=== PATIENT | female | born 1980 | race Caucasian/White ===

== ENCOUNTER 2017-03-19 08:26 | Observation (INO) ==
[2017-03-19] MEDS ORDERED: ASPIRIN PO STA (08:46)
[2017-03-19 08:53] LABS: MANUAL DIFF NEEDED? NO
[2017-03-19 08:58] LABS: BASO% 0.2 % (0.0-0.8); EOS# 0.18 X1000 (0.0-0.7); EOS% 1.8 % (0.0-10.0); HEMATOCRIT 45.6 % (37.0-47.0); HEMOGLOBIN 14.5 g/dL (12.0-16.0); IMM GRAN# 0.04 X1000 (0.0-0.04); IMM GRAN% 0.4 % (0.0-0.5); LYMPH# 1.72 X1000 (1.2-3.4); LYMPH% 17.5 % (20.5-51.1); MCH 25.4 PG (27-31); MCHC 31.8 g/dL (33-37); MONO# 0.34 X1000 (0.11-0.59); MONO% 3.5 % (1.7-9.3); MPV 9.6 FL (7.4-10.4); NEUT% 76.6 % (42.2-75.2); PLT 249 X1000 (130-400)
--- NOTE | 2017-03-19 09:00 | EKG Report ---
Test Performed on : 03/19/2017 08:33:56 AM Test Reason : CHEST PAIN Blood Pressure : / mmHG Vent. Rate : 086 BPM Atrial Rate : 086 BPM P-R Int : 156 ms QRS Dur : 082 ms QT Int : 362 ms P-R-T Axes : 014 006 036 degrees QTc Int : 433 ms Normal sinus rhythm. Low voltage QRS Borderline ECG No previous ECGs available Unconfirmed Result
[2017-03-19 09:18] LABS: AGAP 13; ALBUMIN 3.6 g/dL (3.5-5.0); ALKALINE PHOSPHATASE 95 U/L (32-104); BUN 6 mg/dL (8-22); CALCIUM 8.8 mg/dL (8.8-10.2); CHLORIDE 97 mmol/L (98-107); CK PROFILE 52 U/L (24-173); COSMO 267; GOT 16 U/L (10-30); GPT 10 U/L (10-36); MAGNESIUM 2.1 mg/dL (1.5-2.7); POTASSIUM 4.2 mmol/L (3.5-5.1); SODIUM 134 mmol/L (136-145); TCO2 25 mmol/L (25-35); TOTAL PROTEIN 7.6 g/dL (6.3-8.3)
--- NOTE | 2017-03-19 09:18 | Diag Imaging Result Doc PS360 ---
EXAM: CHEST-2 VIEWS HISTORY: CP TECHNIQUE: COMPARISON: None. FINDINGS: The lungs are well expanded. The heart is not enlarged. The vessels are not distended. There are no infiltrates. No pleural effusions. IMPRESSION: No acute abnormality. Electronically signed by Gm Ramirez 03/19/2017 9:16 AM
[2017-03-19] MEDS ORDERED: ZOFRAN IV ONE (09:41)
--- NOTE | 2017-03-19 09:48 | ED EKG INTERP ---
This chart was entered by Gricel Toussaint Scribe, acting as scribe for Colleen Santiago MD. EKG Interpretation - EKG Time of EKG reading by physician:: 08:33 EKG Read and Signed by:: Colleen Santiago EKG Interpretation (*Must complete 3 of following elements*): Abnormal Rate: 86 Rhythm: normal sinus rhythm Comments: low voltage QRS Attestation - Physician/ LISA Attestation Patient care was provided by Advanced Practice Provider:: No The physician spent face to face time with patient:: Yes Advanced Practice Provider documentation review:: Supervising physician onsite and consulted in the evaluation and care of this patient. The physician did have a face to face encounter with the patient. This chart was documented by the indicated scribe, (Gricel Toussaint Scribe) and accurately reflects the services I performed and decisions made by me, Colleen Santiago MD, as attested by the provider's signature.
--- NOTE | 2017-03-19 09:53 | PROVIDER DOCUMENTATION ---
HPI-Chest Pain - General Chief Complaint: Chest Pain Stated Complaint: CHEST PAIN Time Seen by Provider: 03/19/17 08:49 Source: patient, family Allergies/Adverse Reactions: Patient Allergies Allergy/AdvReac Type Severity Reaction Status Date / Time No Known Allergies Allergy Verified 03/19/17 08:41 Home Medications: Home Medication List Medication Instructions Recorded Confirmed Last Taken Type NK [No Home Medications] 03/19/17 03/19/17 Unknown History - History of Present Illness-CP Nature of Presenting Problem: Reports L sided CP and LUQ pain X 1 week. Chest pain is located at left upper chest radiating to L upper back and L upper arm. Denies SOB/LOC/N/V. Pt has been to [facility] and another ER plus PCP office for the same issues since 1-2 months ago. Pt weighs > 400 lbs and does not want to fo gastric bypass surgeries. Denies taking any medications at regular bases. Pt is in no distress when seen at ER, even though she states that her CP has been constant since yesterday. Denies F/C/N/V and no dysuria. H/o octavio. Location: reports: other (See above) Chest Pain Radiation: reports: arms Quality of Pain: reports: aching Severity in ED: moderate Onset/Duration: 1 week ago Timing: still present, constant Context/Activities at Onset: reports: none Modifying Factors: improves with: nothing Associated Symptoms: reports: fatigue. denies: diaphoresis, dizziness, shortness of breath, syncope, vomiting Nitro Today/Relief: provided by ED Review of Systems - Adult - REVIEW OF SYSTEMS - ADULT Constitutional: reports: no symptoms reported Eyes: reports: no symptoms reported Ears, Nose, Mouth & Throat: reports: no symptoms reported Cardiovascular: reports: see HPI, chest pain Respiratory: reports: see HPI. denies: hemoptysis, pleurisy, shortness of breath Gastrointestinal: reports: see HPI, abdominal pain Genitourinary: reports: no symptoms reported Musculoskeletal: reports: no symptoms reported Integumentary: reports: no symptoms reported Neurological: reports: no symptoms reported Psychiatric: reports: no symptoms reported Endocrine: reports: no symptoms reported Hematologic/Lymphatic: reports: no symptoms reported Allergic/Immunologic: reports: no symptoms reported All Other Systems: Reviewed and Negative Past History - Adult - PAST MEDICAL HISTORY-ADULT Review of Records: reports: Old Records Reviewed, Nursing Assessment Review, Medications Reviewed, Social history reviewed & non-contributory. - SOCIAL HISTORY Smoking: denies Substance Use: none/never Alcohol Use Frequency: never Physical Exam-General - PHYSICAL EXAM-ADULT Initial Vital Signs Reviewed: Yes - CONSTITUTIONAL General Appearance: appears well, alert, no apparent distress, obese. negative : mild distress, moderate distress, severe distress, cachetic, anxious, lethargic, slow to respond, combative - EYES Eyes: PERRL/EOMI, pink conjunctivae - HEAD, EARS, NOSE, MOUTH & THROAT HENMT: normocephalic/atraumatic, moist mucous membranes - NECK Neck: non-tender, full range of motion, supple, normal inspection - RESPIRATORY Respiratory: chest non-tender, lungs clear, normal breath sounds - GASTROINTESTINAL (ABDOMEN) Abdominal Exam: normal bowel sounds, soft, tenderness, other (LUQ moderate tenderness, no guarding and no rebound.). negative: guarding, rigid, rebound, McBurney's point tenderness, Mendenhall's sign, obturator sign - MUSCULOSKELETAL Back Exam: normal inspection, no CVA tenderness Extremity: normal range of motion, non-tender, normal gait - SKIN Integumentary: normal color, normal turgor - NEUROLOGIC Neurologic: no motor/sensory deficits, abnormal cerebellar tests - PSYCHIATRIC Psych/Mental Status: normal mood/affect, normal thought content, normal thought process, oriented x 3 Progress - PLAN OF CARE/RESULTS Progress/Plan/Lab Results: Vital Signs - 8 hr 03/19/17 08:39 Temperature 97.9 F Pulse Rate 90 Respiratory Rate 19 Blood Pressure 132/85 O2 Sat by Pulse Oximetry 99 Laboratory Results - last 24 hr 03/19/17 03/19/17 03/19/17 08:40 08:40 08:40 WBC RBC Hgb Hct MCV MCH MCHC RDW Std Deviation Plt Count MPV Immature Gran % (Auto) Neut % (Auto) Lymph % (Auto) Bradley % (Auto) Eos % (Auto) Baso % (Auto) Immature Gran # (Auto) Neut # (Auto) Lymph # (Auto) Bradley # (Auto) Eos # (Auto) Baso # (Auto) D-Dimer Sodium 134 L Potassium 4.2 Chloride 97 L Carbon Dioxide 25 Anion Gap 13 BUN 6 L Creatinine 0.6 Estimated GFR/1.73 m2 > 60 BUN/Creatinine Ratio 10 Glucose 114 H Calculated Osmolality 267 Calcium 8.8 Magnesium 2.1 Total Bilirubin 0.40 AST 16 ALT 10 Alkaline Phosphatase 95 Creatine Kinase 52 Troponin T < 0.010 [id number] Pept 123 Total Protein 7.6 Albumin 3.6 Globulin 4.0 Albumin/Globulin Ratio 1.0 Lipase Urine Source Urine Color Urine Clarity Urine pH Ur Specific [place] Urine Protein Urine Ketones Urine Blood Urine Nitrite Urine Bilirubin Urine Urobilinogen Urine Microscopic RBC Urine WBC Urine Microscopic WBC Ur Epithelial Cells Urine Bacteria Urine Glucose Urine Test Urine Opiates Screen Ur Oxycodone Screen Urine Methadone Screen Ur Barbituates Screen Ur Tricyclics Screen Ur Phencyclidine Scrn Ur Amphetamines Screen U Methamphetamines Scrn Urine MDMA Screen U Benzodiazepines Scrn Urine Cocaine Screen U Cannabinoids Screen 03/19/17 03/19/17 03/19/17 08:40 08:40 08:40 WBC 9.85 RBC 5.70 H Hgb 14.5 Hct 45.6 MCV 80.0 L MCH 25.4 L MCHC 31.8 L RDW Std Deviation 15.2 H Plt Count 249 MPV 9.6 Immature Gran % (Auto) 0.4 Neut % (Auto) 76.6 H Lymph % (Auto) 17.5 L Bradley % (Auto) 3.5 Eos % (Auto) 1.8 Baso % (Auto) 0.2 Immature Gran # (Auto) 0.04 Neut # (Auto) 7.55 H Lymph # (Auto) 1.72 Bradley # (Auto) 0.34 Eos # (Auto) 0.18 Baso # (Auto) 0.02 D-Dimer 0.26 Sodium Potassium Chloride Carbon Dioxide Anion Gap BUN Creatinine Estimated GFR/1.73 m2 BUN/Creatinine Ratio Glucose Calculated Osmolality Calcium Magnesium Total Bilirubin AST ALT Alkaline Phosphatase Creatine Kinase Troponin T [id number] Pept Total Protein Albumin Globulin Albumin/Globulin Ratio Lipase 16 Urine Source Urine Color Urine Clarity Urine pH Ur Specific [place] Urine Protein Urine Ketones Urine Blood Urine Nitrite Urine Bilirubin Urine Urobilinogen Urine Microscopic RBC Urine WBC Urine Microscopic WBC Ur Epithelial Cells Urine Bacteria Urine Glucose Urine Test Urine Opiates Screen Ur Oxycodone Screen Urine Methadone Screen Ur Barbituates Screen Ur Tricyclics Screen Ur Phencyclidine Scrn Ur Amphetamines Screen U Methamphetamines Scrn Urine MDMA Screen U Benzodiazepines Scrn Urine Cocaine Screen U Cannabinoids Screen 03/19/17 03/19/17 03/19/17 10:00 10:00 10:00 WBC RBC Hgb Hct MCV MCH MCHC RDW Std Deviation Plt Count MPV Immature Gran % (Auto) Neut % (Auto) Lymph % (Auto) Bradley % (Auto) Eos % (Auto) Baso % (Auto) Immature Gran # (Auto) Neut # (Auto) Lymph # (Auto) Bradley # (Auto) Eos # (Auto) Baso # (Auto) D-Dimer Sodium Potassium Chloride Carbon Dioxide Anion Gap BUN Creatinine Estimated GFR/1.73 m2 BUN/Creatinine Ratio Glucose Calculated Osmolality Calcium Magnesium Total Bilirubin AST ALT Alkaline Phosphatase Creatine Kinase Troponin T [id number]-Tzdkayqcdlk Pept Total Protein Albumin Globulin Albumin/Globulin Ratio Lipase Urine Source CLEAN CATCH Urine Color YELLOW Urine Clarity CLEAR Urine pH 6.0 Ur Specific [place] 1.005 Urine Protein NEGATIVE Urine Ketones NEGATIVE Urine Blood TRACE Urine Nitrite NEGATIVE Urine Bilirubin NEGATIVE Urine Urobilinogen NORMAL Urine Microscopic RBC <10 Urine WBC NEGATIVE Urine Microscopic WBC <10 Ur Epithelial Cells >10 A Urine Bacteria 2+ Urine Glucose NEGATIVE Urine Test NEGATIVE Urine Opiates Screen NONE DETECTED Ur Oxycodone Screen NONE DETECTED Urine Methadone Screen NONE DETECTED Ur Barbituates Screen NONE DETECTED Ur Tricyclics Screen NONE DETECTED Ur Phencyclidine Scrn NONE DETECTED Ur Amphetamines Screen NONE DETECTED U Methamphetamines Scrn NONE DETECTED Urine MDMA Screen NONE DETECTED U Benzodiazepines Scrn NONE DETECTED Urine Cocaine Screen NONE DETECTED U Cannabinoids Screen NONE DETECTED Orders Category Date Time Status Cardiac Monitoring DIRECTED Care 03/19/17 08:46 Active Saline Loc NOW Care 03/19/17 08:46 Active CHEST-2 VIEWS [RAD] Stat Exams 03/19/17 08:46 Completed US ABDOMEN-COMPLETE [US] Stat Exams 03/19/17 11:00 Ordered CBC WITH ELECTRONIC DIFF [HEME] Stat Lab 03/19/17 08:40 Completed CK PROFILE [SP CHEM] Stat Lab 03/19/17 08:40 Completed COMPREHENSIVE METABOLIC PANEL [CHEM] Stat Lab 03/19/17 08:40 Com[address] D-DIMER PL [COAG] Stat Lab 03/19/17 08:40 Completed LIPASE [CHEM] Stat Lab 03/19/17 08:40 Completed MAGNESIUM [CHEM] Stat Lab 03/19/17 08:40 Completed TEST-URINE [PREG] Stat Lab 03/19/17 10:00 Completed PRO B-NATRIURETIC PEPTIDE Stat Lab 03/19/17 08:40 Completed TROPONIN T Stat Lab 03/19/17 08:[address] W/POSS RFLX CULT [URINALYSIS] Stat Lab 03/19/17 10:00 Completed URINE DRUG SCREEN PL Stat Lab 03/19/17 10:00 Completed Aspirin Med 03/19/17 08:46 Discontinued 325 mg PO STAT STA Ondansetron [Zofran] Med 03/19/17 09:41 Discontinued 8 mg IV NOW ONE EKG [EKG] Stat Ther 03/19/17 08:46 Draft Result Diagrams: 03/19/17 08:40 03/19/17 08:40 - CONSULTS/PCP/HOSPITALIST Notification #1 *Consult/PCP/Hospitalist*: Dr. Shin Time Discussed: 11:02 Consult Disposition: Will see in ED, Admit Departure - Departure Date of Disposition Decision: 03/19/17 Time of Disposition Decision: 11:01 DIAGNOSIS: Chest pain, Abdominal pain Disposition: ADMITTED INPATIENT 09 Certified Medical Emergency: Emergent Condition: Stable Referrals and Follow-Ups: None,PCP [Primary Care Provider] - - Critical Care Note This patient required my direct & personal management of CC.: No Attestation - Physician/ LISA Attestation Patient care was provided by Advanced Practice Provider:: No The physician spent face to face time with patient:: Yes Advanced Practice Provider documentation review:: Supervising physician onsite and consulted in the evaluation and care of this patient. The physician did have a face to face encounter with the patient.
[2017-03-19 10:37] LABS: BILIRUBIN URINE NEGATIVE (NEGATIVE); BLOOD URINE TRACE (NEGATIVE); CLARITY CLEAR (CLEAR); COLOR YELLOW; GLUCOSE URINE NEGATIVE (NEGATIVE); LEUKOCYTES URINE NEGATIVE (NEGATIVE); NITRITE URINE NEGATIVE (NEGATIVE); PROTEIN URINE NEGATIVE (NEGATIVE); SP GRAVITY URINE 1.005; UR AMPHETAMINES QUAL NONE DETECTED (NONE DETECT); UR BARBITUATES QUAL NONE DETECTED (NONE DETECT); UR BENZODIAZEPIN QUAL NONE DETECTED (NONE DETECT); UR CANNABINOIDS QUAL NONE DETECTED (NONE DETECT); UR COCAINE QUAL NONE DETECTED (NONE DETECT); UR MDMA QUAL NONE DETECTED (NONE DETECT); UR METHADONE QUAL NONE DETECTED (NONE DETECT); UR METHAMPHETAMINE QUAL NONE DETECTED (NONE DETECT); UR OPIATES QUAL NONE DETECTED (NONE DETECT); UR OXYCODONE QUAL NONE DETECTED (NONE DETECT); UR PCP QUAL NONE DETECTED (NONE DETECT); UR TCA QUAL NONE DETECTED (NONE DETECT); UROBILINOGEN URINE NORMAL
[2017-03-19 10:49] LABS: URINE CULTURE PL NEEDED? YES; URINE EPITHELIAL CELLS >10 /HPF (<10); URINE RBC <10 /HPF (<10); URINE SOURCE CLEAN CATCH; URINE WBC <10 /HPF (<10)
[2017-03-19] MEDS ORDERED: TORADOL IM ONE (11:09)
--- NOTE | 2017-03-19 11:57 | Diag Imaging Result Doc PS360 ---
US ABDOMEN-COMPLETE - 03/19/2017 INDICATION: Abd pain COMPARISON: None FINDINGS: The gallbladder is absent. The liver is fatty. Spleen size is borderline enlarged measuring 14.8 x 6.5 x 13.2 cm. The gallbladder is absent. Common bile duct measures 5 mm. Both kidneys are normal. Aorta, IVC, and main portal vein are patent. IMPRESSION: Fatty liver. Mild splenomegaly. No acute disease. Electronically signed by Chino Brewster 03/19/2017 11:54 AM
[2017-03-19] MEDS: PRINIVIL PO SCH (16:43)
--- NOTE | 2017-03-19 17:46 | HISTORY AND PHYSICAL ---
PRIMARY CARE PHYSICIAN: None. CHIEF COMPLAINT: Chest pain and left upper quadrant pain x1 week that progressively worsened. HISTORY OF PRESENTING ILLNESS: This is a 36-year-old morbidly obese, female who presents to [facility] ER with left upper chest pain radiating through to her left upper back and left arm and right upper quadrant abdominal pain. She states the pain is sharp and constant and states that she was seen back in the spring at [facility] and her primary care physician at that time with the same complaints. Workup had been negative up to this point. Today she presents to the ER and her cardiac enzymes x2 sets have been negative. Her chest x-ray showed no acute abnormality. We did an abdomen ultrasound that showed a fatty liver and mild splenomegaly but no acute disease. EKG on arrival showed normal sinus rhythm at 86. Due to her weight of 466 pounds she is unable to get a CTA of the chest as she is above our weight limit for our CT scanner. So, she is being admitted for further evaluation and treatment. PAST MEDICAL HISTORY: Cerebral pseudotumor and trigeminal neuralgia and morbid obesity. PAST SURGICAL HISTORY: x2. Hysterectomy, tonsillectomy and adenoidectomy, and a cholecystectomy. FAMILY HISTORY: Noncontributory. SOCIAL HISTORY: She currently lives with family. Denied any tobacco, alcohol, or illicit drug use. ALLERGIES: She has no known drug allergies. HOME MEDICATIONS: She does not take any medications on a routine basis. LABORATORY DATA: Showed a white blood cell count of 9.85, hemoglobin of 14.5, hematocrit 45.6, platelets 249,000. D-dimer of 0.26. Sodium of 134, potassium 4.2, chloride 97, CO2 25, BUN of 6, creatinine 0.6, glucose 114, magnesium of 2.1. Cardiac enzymes x2 sets have been negative. Lipase of 16. Urinalysis is negative noted to have 2+ bacteria but greater than 10 epithelial cells. Urine drug screen is negative. Chest x-ray showed no acute abnormality. EKG on arrival showed normal sinus rhythm at 86. Abdomen ultrasound showed a fatty liver. Mild splenomegaly and no acute disease. REVIEW OF SYSTEMS: She denied any fever, chills, blurred vision, dizziness. She is positive for left-sided chest pain, back and left arm pain, left upper quadrant abdominal pain. She denied any nausea, vomiting, burning or hurting with urination. PHYSICAL EXAMINATION: VITAL SIGNS: On arrival, her temperature was 97.9 degrees. Pulse 90, respirations 19, blood pressure 132/85. Saturating 99% on room air. GENERAL: This is a 36-year-old morbidly obese, female who is lying in the bed, answers questions appropriately. HEENT: Normocephalic and atraumatic. Pupils are equal, round, reactive to light. Extraocular movements are intact. Oropharynx and nares are clear. NECK: Supple. LUNGS: Clear to auscultation bilaterally with equal lung expansion and chest wall movement. HEART: Regular rate and rhythm. No murmurs, rubs, or gallops. ABDOMEN: Soft, nontender, nondistended. Bowel sounds are present x4 quadrants. EXTREMITIES: No clubbing, cyanosis, or edema. NEUROLOGICAL: The cranial nerves 2-12 appear grossly intact. ASSESSMENT: 1. Chest pain. 2. Left upper quadrant abdominal pain. 3. Hypertension. 4. Morbid obesity. PLAN: She was admitted to the medical unit at [facility] and placed on telemetry. Healthy heart diet. Urine culture is pending. We will hold her NPO after midnight for a myocardial perfusion scan in the a.m., place her on an aspirin 325 mg p.o. daily. Check an echocardiogram also. Dictated by JERILYN Davis for Gabriele Shin MD cc: JERILYN Davis MD
[2017-03-19] MEDS ORDERED: TORADOL IV PRN (20:24)
--- NOTE | 2017-03-20 03:57 | PROGRESS NOTE ---
DATE: 03/21/2017 ADDENDUM: Patient seen and examined by myself. Full note dictated, discussed with nurse practitioner. Patient comes to the ER noting that she has had chest pain off and on for the past several days. States that her finally convinced her to come to the ER. She felt as though it may be her heart. However she does note that the shot of Toradol they gave her in the ER is much better. Pain is actually radiating across the left chest wall. PHYSICAL: She is awake, alert, oriented. She is in no distress, morbidly obese female who is sitting on the side of the bed. She is in no respiratory distress. Pleasant to talk with. We will complete rule out for an DC. First set of enzymes are normal although certainly expect this is going to be musculoskeletal more than anything as the Toradol relieved her symptoms. We will advance her diet to regular diet. Unfortunately she is too large have a CT scan. We will follow and hopefully discharge home in the a.m. cc: Gabriele Shin MD
--- NOTE | 2017-03-20 08:35 | EKG Report ---
Test Performed on : 03/20/2017 07:49:12 AM Test Reason : cp Blood Pressure : / mmHG Vent. Rate : 066 BPM Atrial Rate : 066 BPM P-R Int : 174 ms QRS Dur : 082 ms QT Int : 400 ms P-R-T Axes : 039 006 015 degrees QTc Int : 419 ms Normal sinus rhythm. Low voltage QRS Possible Inferior infarct , age undetermined Abnormal ECG When compared with ECG of 19-MAR-2017 08:33, No significant change was found Confirmed by Chidi Harry MD ([id number]) on 03/25/2017 1:10:55 PM
[2017-03-20] MEDS: PRINIVIL PO SCH (08:59)
[2017-03-20] MEDS ORDERED: ASPIRIN PO SCH (09:00)
[2017-03-20 15:39] VITALS: BP 118/55
--- NOTE | 2017-03-20 17:46 | CONSULTATION ---
DATE OF CONSULTATION: 03/20/2017 IMPRESSION: 1. Chest pain, very atypical for myocardial ischemia. The patient has limited coronary risk profile. ECG and serial cardiac enzymes normal. Echo preliminarily shows technically difficult images, but normal left ventricular systolic function without wall motion abnormality. Suspect chest pain likely noncardiac. Diagnostic evaluation limited by the patient's morbid obesity, with the patient's weight exceeding weight limits for available diagnostic resources. 2. Morbid obesity. RECOMMENDATIONS: 1. Consider alternative diagnostic etiologies. 2. Given the very atypical nature of the patient's chest symptoms and lack of objective data to support cardiac etiology, very atypical nature of the patient's chest symptoms, lack of objective data to suggest cardiac etiology, and weight exceeding limits of available diagnostic resources, no additional cardiac studies suggested at this time. 3. The patient counseled regarding need for weight loss. HISTORY: This 36-year-old, white female, with past history of morbid obesity, was admitted for further evaluation of chest pain. She relates that her recent illness began probably about a week ago with episodic nausea, for which she was taking Zofran. Four or 5 days ago, she started experiencing some left-sided abdominal discomfort as well. This past Sunday, 2 days ago in the evening, she felt some burning discomfort in her left breast and her left axilla. Discomfort lasted approximately 10 minutes and resolved spontaneously. Yesterday, she started experiencing intermittent, sharp, left-sided chest discomfort that might last a few seconds at a time. She might experience some discomfort in her left upper extremity as well, which was also sharp in character and very brief. She came to the emergency room for evaluation and was hospitalized. She reports some malaise as well. Her chest symptoms did not seem to be positional or pleuritic. She can identify no precipitating or relieving factors. Her appetite seems to have been unaffected by her illness. Coronary risk profile is limited. She is a nonsmoker. She does have difficulty with snoring, but denies daytime somnolence. She does report insomnia. PAST MEDICAL HISTORY: 1. Morbid obesity. 2. Pseudotumor cerebri. 3. History of snoring, but reports previous screening for sleep apnea several years ago negative. She relates she weighed considerably less at that time. PAST SURGICAL HISTORY: Includes hysterectomy and 2 previous sections. She is also status post cholecystectomy. SOCIAL HISTORY: She is . She does not smoke or use alcohol. FAMILY HISTORY: Negative for premature coronary disease. REVIEW OF SYSTEMS: Pulmonary: Noncontributory. Gastrointestinal: Noteworthy for nausea and some transient recent left-sided abdominal pain, but otherwise negative. Constitutional: Noteworthy for some malaise, but otherwise negative. Remainder of review of systems negative/noncontributory, with 14 total systems reviewed. PHYSICAL EXAMINATION: General: Reveals a morbidly-obese white female in no distress. Vital Sign: Weight 466 pounds, blood pressure 118/55, heart rate 78 and regular, oxygen saturation 99% on room air. HEENT: Extraocular movements appear intact. Mucous membranes are moist. Neck: Supple, without jugular venous distention. There are no carotid bruits. Chest: Clear to auscultation. Cardiac: Reveals a regular rate and rhythm, without appreciable murmur or gallop. Abdomen: Soft, nontender. Bowel sounds are normal. Extremities: Without edema. Neurologic: Reveals her to be alert, fully oriented. Speech is fluent. She moves all 4 extremities equally well. LABORATORY DATA: Includes a D-dimer 0.26 (normal). Hematocrit 45.8, white blood cell count 9.85. Initial troponin T less than 0.01. Followup troponin T less than 0.01. ECG: Sinus rhythm with low-voltage QRS. cc: Juan Saldivar MD
--- NOTE | 2017-03-21 10:38 | ECHO REPORT ---
ORDER DATE: 03/20/2017 INDICATION FOR THE PROCEDURE: Chest pain, morbid obesity. FINDINGS: This is an extremely difficult study. The patient is 5 foot 5, and weighs 466 pounds. This makes imaging of this patient extremely difficult and limited. RESULTS: 1. The right heart structures are very poorly visualized overall. There is likely mild tricuspid regurgitation. But an accurate RV systolic pressure cannot be measured. I do not clearly see the free wall of the right ventricle on most images. Even with Definity contrast, images of the right ventricle were very poor. There does appear to be some mild pulmonic insufficiency. 2. Mild left atrial enlargement at 4.1 cm. 3. No mitral prolapse. Trace mitral regurgitation. 4. The left ventricle was normal in size with an end-diastolic dimension of 5.3, and normal wall thicknesses of 0.9 cm each. The ejection fraction was evaluated with Definity echo contrast and calculated to be 62% with normal wall motion. 5. Aortic valve opens well. No evidence of stenosis or insufficiency. 6. Aorta appears normal visualized segments. 7. No pericardial effusion seen. cc: MD Jed Mcgovern MD
--- NOTE | 2017-03-22 08:03 | DISCHARGE SUMMARY ---
ADMISSION DATE: 03/19/2017 DISCHARGE DATE: 03/20/2017 PRIMARY CARE PHYSICIAN: None. ADMITTING DIAGNOSES: 1. Chest pain. 2. Left upper quadrant abdominal pain. 3. Hypertension. 4. Morbid obesity. DISCHARGE DIAGNOSES: 1. Chest pain, improved. 2. Left upper quadrant abdominal pain, resolved. 3. Hypertension. 4. Morbid obesity. 5. Escherichia coli urinary tract infection. SUMMARY OF FINDINGS: This is a 36-year-old, morbidly obese, female, weighing 466 pounds who presented with left upper chest pain radiating through to her left upper back, left arm, and left upper quadrant abdominal pain. She stated the pain was sharp and constant. She had been seen back in the spring at [facility] and from her primary care physician at that time with the same complaints, but her workup had been negative. She was admitted but, due to her morbid obesity, she exceeded the weight limit of our equipment for a CTA of the chest or a myocardial perfusion scan. We did obtain an echocardiogram that showed an ejection fraction of 62%. It was felt that she likely had mild tricuspid regurgitation. The wet milling wheel operator felt that this was not a cardiac-related event due to it being an atypical nature of the patient's chest symptoms and lack of objective data to support cardiac etiology. She was started on lisinopril 5 mg p.o. daily for her blood pressure. When she arrived, it was noted to be mildly elevated at 162 /128 at one point and 147/99, and then it came down to 118/55, so it is now felt that she can safely be discharged home. DISCHARGE MEDICATIONS: 1. Lisinopril 10 mg p.o. daily, #30, no refills. 2. Prilosec 40 mg p.o. daily, #30, with no refills. 3. Levaquin 500 mg 1 p.o. daily, #7, no refills. FOLLOWUP: She will need to obtain a primary care physician and then she will need a referral to GI for a possible EGD if these symptoms persists. The patient verbalized understanding of discharge instructions. Discharge Time: 35 minutes. Dictated by JERILYN Davis for Jed Belcher MD cc: JERILYN Davis MD pt examined, had face to face encounter, pt has very atypical chest pain, and shoulder pain, is too overweight for Ct scan and/or noninvasive nuclear imaging , can followup with cardiology to set up outpt stress echocardiogram, will send back to pcp for further evaluation APRAFAELT BRITNEY
== END 2017-03-20 19:00 | disposition home or self-care (01) ==
LOC: P.ED 08:26 → P.MEDSURG 08:26 → SUATTDRO 11:59
PROVIDERS: ATTEND Internal Medicine